=== PATIENT | male | born 2000 | race Two or more races ===

== ENCOUNTER 2019-06-06 19:38 | Emergency (ER) | payer SELFPAY ==
[~2019-06-06] VITALS: Ht 172.7 cm; Wt 77.3 kg
--- NOTE | 2019-06-06 19:53 | ED.ADGEN ---
Past History Past Medical History: Migraines Adult General Chief Complaint Chief Complaint ".. I get head aches. .. but they seem to be coming more frequent.. this one did not go away with tylenol..." HPI HPI Patient is a 19 year old male who presents with migraine headache. Patient states his scalp is tender. Patient states it feels like a tight bandage wrapped around his head. Patient does have photophobia and nausea. Headache overall is similar prior headaches he's had, But just more pronounced. No history of trauma. No history of travel. No history of sick ill contacts. Patient does work in a skilled nursing. Review of Systems Review of Systems Constitutional: Denies fever or chills [] Eyes: Denies change in visual acuity, redness, or eye pain []complains of photophobia HENT: Denies nasal congestion or sore throat [] Respiratory: Denies cough or shortness of breath [] Cardiovascular: No additional information not addressed in HPI [] GI: Denies abdominal pain, nausea, vomiting, bloody stools or diarrhea [] : Denies dysuria or hematuria [] Musculoskeletal: Denies back pain or joint pain [] Integument: Denies rash or skin lesions [] Neurologic: Complains of headache,. Denies focal weakness or sensory changes [] Endocrine: Denies polyuria or polydipsia [] All other systems were reviewed and found to be within normal limits, except as documented in this note. Family History Family History Noncontributory Current Medications Current Medications Current Medications Medications (Trade) Dose Ordered Sig/Pineda Start Time Stop Time Status Last Admin Dose Admin Diphenhydramine HCl (Benadryl) 50 mg 1X ONCE 06/06/19 20:30 06/06/19 20:32 DC 06/06/19 20:36 50 MG Ketorolac Tromethamine (Toradol 30mg Vial) 30 mg 1X ONCE 06/06/19 21:30 06/06/19 21:31 DC 06/06/19 21:20 30 MG Lactated Ringer's 1,000 ml @ 1,000 mls/hr Q1H 06/06/19 19:57 06/06/19 20:56 DC 06/06/19 20:14 1,000 MLS/HR Potassium Chloride (Klor-Con) 40 meq 1X ONCE 06/06/19 22:00 06/06/19 22:01 DC 06/06/19 22:08 40 MEQ Prochlorperazine Edisylate (Compazine) 10 mg 1X ONCE 06/06/19 20:30 06/06/19 20:32 DC 06/06/19 20:36 10 MG Sodium Chloride 50 ml @ As Directed STK-MED ONCE 06/06/19 20:10 06/06/19 20:10 DC Sumatriptan Succinate (Imitrex) 6 mg 1X ONCE 06/06/19 21:30 06/06/19 21:31 DC 06/06/19 21:20 6 MG Valproic Acid (Depacon) 500 mg STK-MED ONCE 06/06/19 20:10 06/06/19 20:10 DC Valproic Acid 500 mg/Sodium Chloride 55 ml @ 55 mls/hr STAT ONCE 06/06/19 20:00 06/06/19 20:59 DC 06/06/19 20:14 55 MLS/HR Allergies Allergies Allergies Coded Allergies Type Severity Reaction Last Updated Verified No Known Drug Allergies 06/06/19 No Physical Exam Physical Exam Constitutional: Well developed, well nourished, mild distress, non-toxic appearance. [] HENT: Normocephalic, atraumatic, bilateral external ears normal, oropharynx moist, no oral exudates, nose normal. []Temporal arteries nontender. Eyes: PERRLA, EOMI, conjunctiva normal, no discharge. [] Neck: Normal range of motion, no tenderness, supple, no stridor. [] Cardiovascular: Tachycardia Heart rate regular rhythm, no murmur [] Lungs & Thorax: Bilateral breath sounds equal at apexes on auscultation [] Abdomen: Bowel sounds normal, soft, no tenderness, no masses, no pulsatile masses. [] Skin: Warm, dry, no erythema, no rash. [] Back: No tenderness, no CVA tenderness. [] Extremities: No tenderness, no cyanosis, no clubbing, ROM intact, no edema. [] Neurologic: Alert and oriented X 3, normal motor function, normal sensory func tion, no focal deficits noted. []DTRs are +2 at patella and brachial. No drift. Platform Supervisor equal. Ambulatory without problems. Psychologic: Affect anxious, judgement normal, mood normal. [] Current Patient Data Vital Signs Vital Signs Date Time Temp Pulse Resp B/P (MAP) Pulse Ox O2 Delivery O2 Flow Rate FiO2 06/06/19 23:25 97.3 93 20 107/63 (78) 98 Room Air Lab Results Laboratory Tests Test 06/06/19 20:04 06/06/19 20:06 Urine Opiates Screen Neg (NEG) Urine Methadone Screen Neg (NEG) Urine Barbiturates Neg (NEG) Urine Phencyclidine Screen Neg (NEG) Urine Amphetamine/Methamphetamine Neg (NEG) Urine Benzodiazepines Screen Neg (NEG) Urine Cocaine Screen Neg (NEG) Urine Cannabinoids Screen Pos (NEG) Urine Ethyl Alcohol Neg (NEG) White Blood Count 8.6 x10^3/uL (4.0-11.0) Red Blood Count 4.26 x10^6/uL (4.30-5.70) L Hemoglobin 13.2 g/dL (13.0-17.5) Hematocrit 38.8 % (39.0-53.0) L Mean Corpuscular Volume 91 fL (79-100) Mean Corpuscular Hemoglobin 31 pg (25-35) Mean Corpuscular Hemoglobin Concent 34 g/dL (31-37) Red Cell Distribution Width 13.7 % (11.5-14.5) Platelet Count 205 x10^3/uL (140-400) Neutrophils (%) (Auto) 71 % (31-73) Lymphocytes (%) (Auto) 14 % (24-48) L Monocytes (%) (Auto) 14 % (0-9) H Eosinophils (%) (Auto) 0 % (0-3) Basophils (%) (Auto) 0 % (0-3) Neutrophils # (Auto) 6.1 x10^3uL (1.8-7.7) Lymphocytes # (Auto) 1.2 x10^3/uL (1.0-4.8) Monocytes # (Auto) 1.2 x10^3/uL (0.0-1.1) H Eosinophils # (Auto) 0.0 x10^3/uL (0.0-0.7) Basophils # (Auto) 0.0 x10^3/uL (0.0-0.2) Erythrocyte Sedimentation Rate 10 (0-15) Prothrombin Time 10.3 SEC (9.4-11.4) Prothrombin Time INR 1.0 (0.9-1.1) Activated Partial Thromboplast Time 29 SEC (23-33) Sodium Level 131 mmol/L (136-145) L Potassium Level 3.1 mmol/L (3.5-5.1) L Chloride Level 95 mmol/L (98-107) L Carbon Dioxide Level 25 mmol/L (21-32) Anion Gap 11 (6-14) Blood Urea Nitrogen 4 mg/dL (8-26) L Creatinine 1.0 mg/dL (0.7-1.3) Estimated GFR (Cockcroft-Gault) 94.3 Glucose Level 113 mg/dL (70-99) H Calcium Level 8.2 mg/dL (8.5-10.1) L Magnesium Level 1.5 mg/dL (1.8-2.4) L Total Bilirubin 0.6 mg/dL (0.2-1.0) Direct Bilirubin 0.1 mg/dL (0.0-0.2) Aspartate Amino Transferase (AST) 20 U/L (15-37) Alanine Aminotransferase (ALT) 35 U/L (16-63) Alkaline Phosphatase 95 U/L (46-116) Troponin I Quantitative < 0.017 ng/mL (0-0.055) Total Protein 6.9 g/dL (6.4-8.2) Albumin 3.5 g/dL (3.4-5.0) EKG EKG My interpretation EKG shows a sinus tachycardia at 102. No acute morphology[] Radiology/Procedures Radiology/Procedures [][address] [address] IMAGING REPORT Signed PATIENT: PMA CELESTIN ACCOUNT: [id number] : 2000 LOCATION: ER AGE: 19 SEX: M EXAM STATUS: PRE ER ORD. PHYSICIAN: KENNY WHYTE MD REASON: Severe headache PROCEDURE: CT HEAD WO CONTRAST Exam: CT head INDICATION: Severe headache TECHNIQUE: Sequential axial images through the head were obtained without the administration of IV contrast. Comparisons: None FINDINGS: No focal parenchymal lesion or hemorrhage is identified. There is no midline shift or sulcal effacement. No acute vascular territory infarction is identified. Oliveira-white distinction is preserved. The ventricular system is within normal limits without compression hydrocephalus. The basal cisterns are well maintained. The visualized portions of the paranasal sinuses and mastoid air cells are well-pneumatized. No acute fractures. IMPRESSION: No acute intracranial abnormality. Exposure: One or more of the following in the visualized dose reduction techniques were utilized for this examination: 1. Automated exposure control 2. Adjustment of the MA and/or KV according to patient size Use of iterative of reconstructive technique Electronically signed by: Yesy Swanson MD (06/06/2019 8:48 PM) [facility] [id number] DICTATED AND SIGNED BY: YESY SWANSON MD DATE: 06/06/192047 CC: KENNY WHYTE MD ~ Course & Med Decision Making Course & Med Decision Making Pertinent Labs and Imaging studies reviewed. (See chart for details) Patient declines spinal tap at this time. Benefits and complications discussed. Patient exhibits UCAR capacity. Patient take Zofran as needed for nausea and vomiting. Patient recommended he follow-up with a neurologist and primary care. Patient return if any concerns. Patient push fruit juices. Patient may take Imitrex 100 mg at the beginning of headache but not take more than 200 mg in 24-hour hours. Patient take Tylenol and ibuprofen for pain. For marked pain may take Vicoprofen. Patient return if any concerns [] Final Impression Final Impression 1. Migraine headache[] 2. Hyponatremia 131 3. Hypo-kalemia 3.1 Dragon Disclaimer Dragon Disclaimer This electronic medical record was generated, in whole or in part, using a voice recognition dictation system. Dragon Disclaimer This chart was dictated in whole or in part using Voice Recognition software in a busy, high-work load, and often noisy Emergency Department environment. It may contain unintended and wholly unrecognized errors or omissions. KENNY WHYTE MD Jun 06, 2019 19:52
[2019-06-06] MEDS ORDERED: IV RINGERS SOLUTION,LACTATED 1,000 ML IV SCH (19:57)
[2019-06-06] MEDS ORDERED: VALPROATE SODIUM 500 MG in IV NORMAL SALINE 50ML 50 ML IV ONE (20:00)
[2019-06-06] MEDS ORDERED: VALPROATE SODIUM 500 MG/5 ML VIAL IV ONE (20:10)
[2019-06-06] MEDS ORDERED: IV NORMAL SALINE 50ML 50 ML ONE (20:10)
[2019-06-06] MEDS ORDERED: PROCHLORPERAZINE 10 MG/2 ML VIAL. IV ONE (20:30)
[2019-06-06] MEDS ORDERED: diphenhydrAMINE 50 MG/ML VIAL IVP ONE (20:30)
[2019-06-06 20:32] LABS: BASO % 0 % (0-3); EOS % 0 % (0-3); HEMATOCRIT 38.8 % (39.0-53.0); HEMOGLOBIN 13.2 g/dL (13.0-17.5); LYMPH # 1.2 x10^3/uL (1.0-4.8); LYMPH % 14 % (24-48); MEAN CORPUSCULAR HEMOGLOBIN 31 pg (25-35); MEAN CORPUSCULAR HGB CONC 34 g/dL (31-37); MEAN CORPUSCULAR VOLUME 91 fL (79-100); MONO # 1.2 x10^3/uL (0.0-1.1); MONO % 14 % (0-9); NEUT # 6.1 x10^3uL (1.8-7.7); NEUT % 71 % (31-73); PLATELET COUNT 205 x10^3/uL (140-400); RED BLOOD COUNT 4.26 x10^6/uL (4.30-5.70); RED CELL DISTRIBUTION WIDTH 13.7 % (11.5-14.5); WHITE BLOOD COUNT 8.6 x10^3/uL (4.0-11.0)
[2019-06-06 20:33] LABS: AMPHETAMINE/METHAMPHETAMINE NEG (NEG); BARBITURATES NEG (NEG); BENZODIAZEPINES NEG (NEG); CANNABINOIDS POS (NEG); COCAINE NEG (NEG); METHADONE NEG (NEG); OPIATES NEG (NEG); PHENCYCLIDINE NEG (NEG)
[2019-06-06 20:41] LABS: ALBUMIN 3.5 g/dL (3.4-5.0); CALCIUM 8.2 mg/dL (8.5-10.1); DIRECT BILIRUBIN 0.1 mg/dL (0.0-0.2); GFR 94.3; MAGNESIUM 1.5 mg/dL (1.8-2.4); POTASSIUM 3.1 mmol/L (3.5-5.1); TOTAL BILIRUBIN 0.6 mg/dL (0.2-1.0); TOTAL PROTEIN 6.9 g/dL (6.4-8.2)
--- NOTE | 2019-06-06 20:51 | RAD ---
Exam: CT head INDICATION: Severe headache TECHNIQUE: Sequential axial images through the head were obtained without the administration of IV contrast. Comparisons: None FINDINGS: No focal parenchymal lesion or hemorrhage is identified. There is no midline shift or sulcal effacement. No acute vascular territory infarction is identified. Oliveira-white distinction is preserved. The ventricular system is within normal limits without compression hydrocephalus. The basal cisterns are well maintained. The visualized portions of the paranasal sinuses and mastoid air cells are well-pneumatized. No acute fractures. IMPRESSION: No acute intracranial abnormality. Exposure: One or more of the following in the visualized dose reduction techniques were utilized for this examination: 1. Automated exposure control 2. Adjustment of the MA and/or KV according to patient size Use of iterative of reconstructive technique Electronically signed by: Yesy Willis MD (06/06/2019 8:48 PM) [facility]
[2019-06-06] MEDS ORDERED: KETOROLAC 30 MG/ML VIAL. IV ONE (21:30)
[2019-06-06] MEDS ORDERED: SUMAtriptan SUCC 6 MG/0.5 ML VIAL SQ ONE (21:30)
[2019-06-06 21:38] LABS: SEDIMENTATION RATE 10 (0-15)
[2019-06-06] MEDS ORDERED: POTASSIUM CHLORIDE 20 MEQ TABLET.ER. PO ONE (22:00)
--- NOTE | 2019-06-06 22:28 | EKG ---
[address] [address] Test Date: 2019-06-06 Test Time: 20:13:47 Pat Name: PAM CELESTIN Department: Room: Gender: M Employment Coach: : 2000 Requested By: KENNY WHYTE Order Number: [id number] Reading MD: Ascencion Courtney MD Measurements Intervals [place] Rate: 102 P: 42 KS: 126 QRS: 26 QRSD: 94 T: 34 QT: 316 QTc: 416 Interpretive Statements SINUS TACHYCARDIA Electronically Signed On 06-11-2019 9:51:02 CDT by Ascencion Courtney MD
[2019-06-06] MEDS ORDERED: SUMA100T3 PO (23:04)
[2019-06-06] MEDS ORDERED: ONDA8TAB9 PO (23:04)
[2019-06-06] MEDS ORDERED: HYDR-1179 PO (23:04)
[2019-06-06 23:25] VITALS: BP 107/63
== END 2019-06-06 23:35 | disposition home or self-care (01) ==
LOC: ER 19:38
DX: G43.909 Migraine, unspecified, not intractable, without status migrainosus (principal); E87.1 Hypo-osmolality and hyponatremia; E87.6 Hypokalemia
CPT/HCPCS: 36415; 70450; 80048; 80076; 80307; 83735; 84443; 84484; 85025; 85610; 85651; 85730; 93005; 96365; 96372; 96375; 99285; J0780; J1200; J1885; J3030; J3490; J7120

== ENCOUNTER → 2019-06-23 | Outpatient (CLI) | payer SELFPAY ==
[2019-06-06 23:25] VITALS: BP 107/63
[~2019-06-23] MED LIST: HYDR-1179 PO; ONDA8TAB9 PO; SUMA100T3 PO
--- NOTE | 2019-06-24 09:13 | RAD ---
CLINICAL HISTORY: Right testicular pain and swelling, injury 06/19/2019. COMPARISON: None available. TECHNIQUE: Ultrasound images of the scrotum was performed with lipscomb-scale and color doppler. FINDINGS: The right testis measures 4.7 x 3 x 3 cm. The left testis measures 4.6 x 2.8 x 2.5 cm. No definite intratesticular mass. Asymmetric increased Doppler flow is seen within the right testis relative to the left. Although the epididymis is normal bilaterally on grayscale imaging, the right epididymis is hypervascular relative to the left epididymis. Small bilateral hydroceles. No varicocele. IMPRESSION: 1. Asymmetric hypervascularity of the right testis and epididymis relative to the left may be posttraumatic given history of trauma. Epididymoorchitis would have similar appearance. 2. Small bilateral hydroceles. Electronically signed by: Luis Eduardo Mancini MD (06/24/2019 9:10 AM) [facility]
== END | disposition home or self-care (01) ==
LOC: US 18:03
PROVIDERS: ATTEND Family Medicine
DX: N44.00 Torsion of testis, unspecified (principal); N43.3 Hydrocele, unspecified; N45.3 Epididymo-orchitis
CPT/HCPCS: 76870